=== PATIENT | female | born 1960 | race Caucasian/White ===

== ENCOUNTER → 2024-03-19 14:35 | Outpatient (REF) | payer BC, SELFPAY | LOC: RAD 14:35 | PROVIDERS: ATTENDING PHYSICIAN Nurse Practitioner Family | DX: Z13.820 Encounter for screening for osteoporosis (principal); Z12.31 Encounter for screening mammogram for malignant neoplasm of breast; R05.9 Cough, unspecified | CPT/HCPCS: 71046; 77063; 77067; 77080 ==

== ENCOUNTER → 2024-04-11 07:11 | Outpatient (REF) | payer BC, SELFPAY ==
[2024-04-11 09:37] LABS: % Eosinophils 3.4 % (0-6); % Immature Granulocytes 0.2 % (0-0.5); % Lymphocytes 43.7 % (20.5-51.1); % Monocytes 10.1 % (1.7-9.3); % Neutrophils 41.6 % (42.2-75.2); Absolute Basophils 0.1 10^3/uL (0-0.2); Absolute Eosinophils 0.2 10^3/uL (0-0.7); Absolute Lymphocytes 2.2 10^3/uL (1.2-3.4); Absolute Monocytes 0.5 10^3/uL (0.1-0.6); Absolute Neutrophils 2.1 10^3/uL (1.4-6.5); Hematocrit 40.2 % (37.0-47.0); Hemoglobin 13.3 g/dL (12.0-16.0); Mean Corp Hgb Conc. 33.1 g/dL (33.0-37.0); Mean Corpuscular Hgb 28.5 pg (27.0-31.0); Mean Corpuscular Volume 86.1 fL (81.0-99.0); Nucleated Red Blood Cells % 0 %; Platelet Count 232 10^3/uL (130-400); Red Blood Cell Count 4.67 10^6/uL (4.20-5.40); Red Cell Dist. Width 14.2 % (11.5-14.5)
[2024-04-11 09:54] LABS: ALT (SGPT) 36 U/L (0-35); AST (SGOT) 33 U/L (14-36); Albumin 4.3 g/dl (3.5-5.0); Alkaline Phosphatase 79 U/L (38-126); Blood Urea Nitrogen 18 mg/dl (7-17); Calcium 9.5 mg/dl (8.4-10.2); Carbon Dioxide 27 mmol/L (22-30); Chloride 104 mmol/L (98-107); Glucose 106 mg/dl (70-99); HDL Cholesterol 72 mg/dl; LDL Cholesterol, Calculated 207 mg/dl; Potassium 4.7 mmol/L (3.5-5.1); Sodium 137 mmol/L (135-145); Total Bilirubin 0.2 mg/dl (0.2-1.3); Total Cholesterol 307 mg/dl (50-199); Total Protein 6.9 g/dl (6.3-8.2); Triglyceride 144 mg/dl (10-149); Very Low Density Lipoprotein 28 mg/dl (0-30); eGFR > 60.00
[2024-04-11 10:49] LABS: Glycohemoglobin (HgbA1c) 5.9 % (4.0-5.6)
[2024-04-11 11:29] LABS: Vitamin D, 25-OH*** 34.9 ng/mL (30-80)
[2024-04-11 11:42] LABS: TSH 3.88 uIU/ml (0.47-4.68)
[2024-04-11 12:02] LABS: Vitamin B12 623 pg/ml (239-931)
== END ==
LOC: HWLAB 07:11
PROVIDERS: ATTENDING PHYSICIAN Family Medicine
DX: F31.10 Bipolar disorder, current episode manic without psychotic features, unspecified (principal); E78.5 Hyperlipidemia, unspecified; E11.9 Type 2 diabetes mellitus without complications
CPT/HCPCS: 36415; 80053; 80061; 82306; 82607; 83036; 84443; 85025

== ENCOUNTER 2024-05-11 03:47 | Emergency (ER) | payer BC, SELFPAY ==
[2024-05-11 03:50] VITALS: BP 154/85
[2024-05-11 04:13] VITALS: BP 128/72
[2024-05-11 04:27] LABS: Hematocrit 37.2 % (37.0-47.0); Hemoglobin 12.7 g/dL (12.0-16.0); Mean Corp Hgb Conc. 34.1 g/dL (33.0-37.0); Mean Corpuscular Hgb 27.9 pg (27.0-31.0); Mean Corpuscular Volume 81.6 fL (81.0-99.0); Platelet Count 243 10^3/uL (130-400); Red Blood Cell Count 4.56 10^6/uL (4.20-5.40); Red Cell Dist. Width 13.8 % (11.5-14.5); White Blood Cell Count 5.3 10^3/uL (4.8-10.8)
--- NOTE | 2024-05-11 04:29 | ED.GENMED ---
History of Present Illness
<ALLEN Cary (Lenka) - Last Filed: 05/11/24 06:30>
General
Chief Complaint: Abdominal Pain
Source: patient
Exam Limitations: none
Time Seen by Provider: 05/11/24 04:11
Nursing documentation reviewed up to this point in time: agreed with
History of Present Illness
History of Present Illness:
Pt is a 63 yo female with PMHx of HLD not on medications (states she has a low calcium risk score), nephrolithiasis, diverticulosis of sigmoid colon, acid reflux who presents to the ED with RUQ abdominal pain x 2d. Pt states the pain began at night
2 days ago (, 05/09), she took Advil and Tylenol with only temporary relief. Yesterday, the pain began to radiate to her mid-back. The pain is constant, moderate in severity, and keeping her up at night. She took Tylenol tonight with no
relief. She notes that yesterday she ate steak and fries. She admits to feeling bloated, but denies decreased appetite. Admits to pain with breathing, but no difficulty breathing. Denies fevers, chills, N/V/C/D, esophageal burning, difficulty
swallowing, URI sx, urinary frequency, hesitancy, urgency, chest pain, shoulder, flank pain, pelvic pain.
Alcohol - pt drinks on average 2 drinks/day
Smoking - quit smoking 35 years ago
No past abdominal surgical history.
Past History
<ALLEN Cary (Lenka) - Last Filed: 05/11/24 06:30>
Past History
ED Past Medical History: GERD, Hypercholesterolemia and Other (diverticulosis of sigmoid colon)
ED Past Surgical History: Gynecological (D&C 1989), Orthopedic (B/L hip replacements), Tonsilectomy (1968) and Other (parathyroid surgery)
Social History
Tobacco: Former smoker (quit at age 29)
Alcohol: Daily (2 drinks/day)
Living: with family
Employment: Employed
Phy Exam
<ALLEN Cary (Lenka) - Last Filed: 05/11/24 06:30>
General Physical Exam
General Presentation: mild distress
General age: appears stated age
General Skin: warm and dry
General Habitus: normal
General Mental: alert
General Hydration: appears well hydrated
Cardiovascular Exam
Cardiovascular Exam: regular rate/rhythm, no edema, no gallop and normal peripheral pulses
Pulmonary Exam
Pulmonary Exam: lungs clear, no respiratory distress, no rales, no rhonchi and no cough
Gastrointestinal Exam
Gastrointestinal Exam: normal bowel sounds, soft, non distended, tender (moderate in epigastric region, mild in RUQ, mild to mid-back) and other (negative [place] sign)
Palpation: left upper quadrant: No tenderness, left lower quadrant: No tenderness, right upper quadrant: Mild tenderness, right lower quadrant: No tenderness and generalized: Other (epigastric tenderness, moderate)
Neurological Exam
Neurological Exam: alert, oriented x3 and speech normal
Skin Exam
Skin Exam: normal color, warm/dry and no rash
Course
<ALLEN Cary (Lenka) - Last Filed: 05/11/24 06:30>
Orders/Labs/Results
Orders:
Orders
05/11/24 03:59
IV Insert/Care/Rem.- Treatment PRN
05/11/24 04:15
Complete Blood Count/With Diff Urgent
Comprehensive Metabolic Panel Urgent
Lipase Urgent
05/11/24 04:18
ECG [Electrocardiogram (*1)] Urgent
Reason for Study: Abdominal Pain
05/11/24 04:19
EKG- Treatment ONCE
05/11/24 04:41
Ketorolac [Toradol] 15 mg IV NOW STA
05/11/24 04:42
US Abdomen Complete/Upper Urgent
Comment:
Reason For Exam: RUQ abd pain
05/11/24 05:23
Urinalysis Reflex To Culture Urgent
Date Specimen was Collected: 05/11/24
Time Specimen was Collected: 05:18
05/11/24 05:35
HYDROmorphone [Dilaudid] 0.5 mg IV NOW STA
05/11/24 06:27
CT Abd/pelvis W Iv Cont Urgent
Comment:
Reason For Exam: R sided abd pain
Abnormal Lab Results
05/11/24
04:15
Neutrophils % 31.0 L %
(42.2-75.2)
Lymphocytes % 55.2 H %
(20.5-51.1)
Chloride 108 H mmol/L
(98-107)
Carbon Dioxide 20 L mmol/L
(22-30)
Glucose 107 H mg/dl
(70-99)
05/11/24 04:15
05/11/24 04:15
Vital Signs
Initial and Last Documented VS:
Initial Vital Signs
Temp Pulse Resp BP Pulse Ox
98.4 F 89 20 154/85 97
05/11/24 03:50 05/11/24 03:50 05/11/24 03:50 05/11/24 03:50 05/11/24 03:50
Last Documented Vital Signs
Temp Pulse Resp BP Pulse Ox
98.4 F 78 17 125/79 96
05/11/24 03:50 05/11/24 05:01 05/11/24 05:01 05/11/24 05:01 05/11/24 05:01
<Robert Claros, - Last Filed: 05/11/24 07:36>
Orders/Labs/Results
Orders:
Orders
05/11/24 03:59
IV Insert/Care/Rem.- Treatment PRN
05/11/24 04:15
Complete Blood Count/With Diff Urgent
Comprehensive Metabolic Panel Urgent
Lipase Urgent
05/11/24 04:18
ECG [Electrocardiogram (*1)] Urgent
Reason for Study: Abdominal Pain
05/11/24 04:19
EKG- Treatment ONCE
05/11/24 04:41
Ketorolac [Toradol] 15 mg IV NOW STA
05/11/24 04:42
US Abdomen Complete/Upper Urgent
Comment:
Reason For Exam: RUQ abd pain
05/11/24 05:23
Urinalysis Reflex To Culture Urgent
Date Specimen was Collected: 05/11/24
Time Specimen was Collected: 05:18
05/11/24 05:35
HYDROmorphone [Dilaudid] 0.5 mg IV NOW STA
05/11/24 06:27
CT Abd/pelvis W Iv Cont Urgent
Comment:
Reason For Exam: R sided abd pain
Abnormal Lab Results
05/11/24
04:15
Neutrophils % 31.0 L %
(42.2-75.2)
Lymphocytes % 55.2 H %
(20.5-51.1)
Chloride 108 H mmol/L
(98-107)
Carbon Dioxide 20 L mmol/L
(22-30)
Glucose 107 H mg/dl
(70-99)
05/11/24 04:15
05/11/24 04:15
Vital Signs
Initial and Last Documented VS:
Initial Vital Signs
Temp Pulse Resp BP Pulse Ox
98.4 F 89 20 154/85 97
05/11/24 03:50 05/11/24 03:50 05/11/24 03:50 05/11/24 03:50 05/11/24 03:50
Last Documented Vital Signs
Temp Pulse Resp BP Pulse Ox
98.4 F 78 17 125/79 96
05/11/24 03:50 05/11/24 05:01 05/11/24 05:01 05/11/24 05:01 05/11/24 05:01
<ALLEN Cary (Lenka) - Last Filed: 05/11/24 06:30>
MDM/Problems Addressed
Differential Diagnosis Includes:
DDx: choledocholithiasis vs cholecystitis vs pancreatitis
Pt presenting with 2d of RUQ pain radiating to the back, moderately tender to palpation in the epigastric region, mild tenderness to palpation in RUQ. Negative Rodriguez sign.
Plan to order CBC, CMP, lipase, EKG, and upper abdominal U/S.
Labs
normal WBC (5.3)
normal LFTs (AST 28, ALT 31, alkphos 80)
normal Tbili (0.2)
normal lipase (174)
EKG - NSR 77 bpm, possible LAD (my read)
Upper abdominal U/S - pending
<Robert Claros DO - Last Filed: 05/11/24 07:36>
MDM/Problems Addressed
MDM/Problems Addressed:
Right upper quadrant abdominal pain
<ALLEN Cary (Lenka) - Last Filed: 05/11/24 06:30>
*Critical Care Note
Total Time (30-74mins, 75-104mins- exclusive of procedures): Not Applicable
<Robert Claros DO - Last Filed: 05/11/24 07:36>
*Pulse Oximetry
Patient hypoxic: no
*EKG
Interpreted by ED Provider?: Yes
Interpretation: normal
Rate: normal
Rhythm: sinus
[place]: normal axis
Interval: normal interval
Ischemia: no ischemia
*Pantograph Engraver Interpretation
Rate: normal
Interpretation: normal
Rhythm: sinus
Data Reviewed
Source: patient
<Aranza GuzmanAniaALLEN Ribera - Last Filed: 05/11/24 06:30>
Update Note
Update Note:
U/S abdomen, complete (622)
Echogenic hepatic parenchyma, suggestive of hepatic steatosis. No focal liver mass where seen. Smooth capsular contours. Hepatopetal portal venous flow. Antegrade hepatic venous flow.
Normal gallbladder, without shadowing gallstone. No significant gallbladder wall thickening or pericholecystic fluid. Cortically negative sonographic Rodriguez sign.
No significant intrahepatic or extrahepatic biliary ductal dilation. CBD measures 3.7 mm.
Pancreas normal where seen.
Normal kidneys, without hydronephrosis, solid mass or definite nephrolithiasis. Probably renal vascular calcification on the left.
Normal spleen, 1.1 cm.
No aneurysmal abdominal aorta.
Given inconclusive results of U/S, will obtain CTAP w/ and w/o contrast.
<Robert Claros DO - Last Filed: 05/11/24 07:36>
Update Note
Update Note:
U/S abdomen, complete (622)
Echogenic hepatic parenchyma, suggestive of hepatic steatosis. No focal liver mass where seen. Smooth capsular contours. Hepatopetal portal venous flow. Antegrade hepatic venous flow.
Normal gallbladder, without shadowing gallstone. No significant gallbladder wall thickening or pericholecystic fluid. Cortically negative sonographic Rodriguez sign.
No significant intrahepatic or extrahepatic biliary ductal dilation. CBD measures 3.7 mm.
Pancreas normal where seen.
Normal kidneys, without hydronephrosis, solid mass or definite nephrolithiasis. Probably renal vascular calcification on the left.
Normal spleen, 1.1 cm.
No aneurysmal abdominal aorta.
Given inconclusive results of U/S, will obtain CTAP w/ and w/o contrast.
[address] negative[address] Ultrasound grossly negative. Labs grossly unremarkable. Patient does appear well at symptoms x 5 days. White count nl. ok for outpt mgmt.
ED Attending Note
<ALLEN Cary (Lenka) - Last Filed: 05/11/24 06:30>
-
Portions of this chart may have been created with voice recognition software.� Occasional wrong word or��sound alike� substitutions may have occurred due to the inherent limitations of voice recognition software.
<Robert Claros DO - Last Filed: 05/11/24 07:36>
ED Attending Note
Patient seen and examined by attending physician: Yes
I performed the substantive portion of visit, reviewed & personally made and approve the management plan that is documented in note by myself or NADIR.: Yes
ED Attending Note:
63-year-old female has had a few days of right upper quadrant abdominal pain rating to her back. Patient states it has been getting worse. She is unsure if it gets worse with eating. Denies being much worse and she cannot sleep. No nausea or
vomiting or fevers. No injury. She is initially suspected this may be a muscle pull. She denies fevers, melena, hematochezia. No rash. Exam: Moderate right upper tenderness. No distention. No respiratory distress. Assessment plan: Check
labs, right quadrant ultrasound, pain control
Discharge Plan
Departure
Patient Disposition: Home (Routine Discharge)
Date of Disposition: 05/11/24
Time of Disposition: 07:35
Patient with high blood pressure during this ER visit?: No
Discharge Problem:
Abdominal pain
Instructions: Abdominal Pain
Prescriptions:
No Action
acetaminophen 325 MG tablet
2 tab PO PRN PRN (Reason: pain)
clonazepam 0.5 MG tablet
0.5 mg PO PRN PRN (Reason: prn)
Patient Comments:
Takes for restless leg syndrome
sennosides-docusate sodium [Stool Softener-Stimulant Laxat] 1 EACH tablet
1 tab PO Daily
Referrals:
UNKNOWN - PT NOT,INTERVIEWE [Unknown Provider] -
Activity Restrictions/Additional Instructions:
Return to the emergency department if you develop worsening abdominal pain, severe nausea and vomiting, bloody or dark green vomit, blood in the stool, an inability to keep down fluids, if you develop chest pain or difficulty breathing,
lightheadedness or dizziness. Maintain hydration.
Interventions
Interventions:
*Risk Screen - Suicide Last Done: 05/11/24 03:50
*Neglect/Abuse Screening Last Done: 05/11/24 03:50
*ED COVID-19 Vaccine History Last Done: 05/11/24 03:50
[id number] Assessment Last Done: 05/11/24 04:08
Discharge Date and Time
Print Language: CYMRAES
[2024-05-11 04:39] LABS: ALT (SGPT) 31 U/L (0-35); AST (SGOT) 28 U/L (14-36); Albumin 4.4 g/dl (3.5-5.0); Alkaline Phosphatase 80 U/L (38-126); Blood Urea Nitrogen 14 mg/dl (7-17); Calcium 9.3 mg/dl (8.4-10.2); Carbon Dioxide 20 mmol/L (22-30); Chloride 108 mmol/L (98-107); Glucose 107 mg/dl (70-99); Lipase 174 U/L (23-300); Potassium 4.4 mmol/L (3.5-5.1); Sodium 139 mmol/L (135-145); Total Bilirubin 0.2 mg/dl (0.2-1.3); Total Protein 6.8 g/dl (6.3-8.2); eGFR > 60.00
[2024-05-11] MEDS: TORADOL 15 MG IV (04:58)
[2024-05-11 05:01] VITALS: BP 125/79
[2024-05-11 05:11] LABS: % Basophils 1.3 % (0-2); % Eosinophils 3.6 % (0-6); % Lymphocytes 55.2 % (20.5-51.1); % Monocytes 8.9 % (1.7-9.3); Absolute Basophils 0.1 10^3/uL (0-0.2); Absolute Eosinophils 0.2 10^3/uL (0-0.7); Absolute Lymphocytes 2.9 10^3/uL (1.2-3.4); Absolute Monocytes 0.5 10^3/uL (0.1-0.6); Absolute Neutrophils 1.6 10^3/uL (1.4-6.5); Nucleated Red Blood Cells % 0 %
[2024-05-11 05:31] LABS: Urine Albumin Negative (Neg - Trace); Urine Bilirubin Negative (Negative); Urine Character Clear (Clear); Urine Color Yellow; Urine Glucose Negative (Negative); Urine Ketone Negative (Negative); Urine Leukocyte Negative (Negative); Urine Nitrite Negative (Negative); Urine Occult Blood Negative (Negative); Urine Specific Gravity 1.015 (<1.030); Urine Urobilinogen Negative (Neg - 1+)
[2024-05-11] MEDS: DILAUDID 0.5 MG IV (05:40)
[2024-05-11 06:15] VITALS: BP 121/72
[2024-05-11 06:43] VITALS: BP 131/72
[2024-05-11 07:00] VITALS: BP 130/69
== END 2024-05-11 07:53 | disposition home or self-care (01) ==
LOC: EMR 03:47
PROVIDERS: EMERGENCY PHYSICIAN Emergency Medicine; FAMILY PHYSICIAN Family Medicine
DX: R10.11 Right upper quadrant pain (principal); E78.00 Pure hypercholesterolemia, unspecified; K21.9 Gastro-esophageal reflux disease without esophagitis; Z87.891 Personal history of nicotine dependence
CPT/HCPCS: 99284; 96374; 96375; 74177; 76700; 80053; 81003; 83690; 85025; 93005; Q9967

== ENCOUNTER → 2025-04-30 09:18 | Outpatient (REF) | payer MEDICARE, BC, SELFPAY | LOC: WDC 09:18 | PROVIDERS: ATTENDING PHYSICIAN Obstetrics & Gynecology; FAMILY PHYSICIAN Family Medicine | DX: N64.4 Mastodynia (principal) | CPT/HCPCS: 76642; 77062; 77066 ==

== ENCOUNTER → 2025-05-16 08:51 | Outpatient (REF) | payer MEDICARE, BC, SELFPAY ==
[2025-05-16 12:29] LABS: Hematocrit 43.3 % (37.0-47.0); Hemoglobin 13.7 g/dL (12.0-16.0); Mean Corp Hgb Conc. 31.6 g/dL (33.0-37.0); Mean Corpuscular Volume 85.1 fL (81.0-99.0); Nucleated Red Blood Cells % 0 %; Platelet Count 265 10^3/uL (130-400); Red Cell Dist. Width 13.9 % (11.5-14.5)
[2025-05-16 12:53] LABS: Glycohemoglobin (HgbA1c) 5.9 % (4.0-5.6)
[2025-05-16 14:23] LABS: ALT (SGPT) 52 U/L (0-35); AST (SGOT) 34 U/L (14-36); Albumin 4.7 g/dl (3.5-5.0); Alkaline Phosphatase 69 U/L (38-126); Blood Urea Nitrogen 20 mg/dl (7-17); Calcium 9.7 mg/dl (8.4-10.2); Carbon Dioxide 27 mmol/L (22-30); Chloride 104 mmol/L (98-107); Glucose 117 mg/dl (70-99); HDL Cholesterol 69 mg/dl; LDL Cholesterol, Calculated 225 mg/dl; Potassium 5.1 mmol/L (3.5-5.1); Sodium 138 mmol/L (135-145); Total Protein 7.5 g/dl (6.3-8.2); Very Low Density Lipoprotein 23 mg/dl (0-30); eGFR > 60.00
== END ==
LOC: HWLAB 08:51
PROVIDERS: ATTENDING PHYSICIAN Family Medicine
DX: E78.01 Familial hypercholesterolemia (principal); R73.03 Prediabetes; D35.2 Benign neoplasm of pituitary gland
CPT/HCPCS: 36415; 80053; 80061; 83036; 84443; 85025